=== PATIENT | male | born 1975 | race Caucasian/White ===

== ENCOUNTER 2017-11-01 15:38 | Emergency (ER) | payer OTHER ==
[~2017-11-01] VITALS: Ht 195.6 cm; Wt 84.1 kg
[2017-11-01 15:41] VITALS: Ht 195.6 cm; Wt 84.1 kg
[2017-11-01] MEDS ORDERED: CLONAZEPAM0.5 MG/TAB PO (15:46)
[2017-11-01] MEDS ORDERED: ADDERALL 20 MG20 M1 PO (15:47)
[2017-11-01] MEDS ORDERED: VIBRAMYCIN 100100 MG PO (18:44)
[2017-11-01] MEDS ORDERED: BACTRIM DS TABL1 TAB PO (18:44)
[2017-11-01 18:59] VITALS: BP 98/76
== END 2017-11-01 18:57 | disposition home or self-care (01) ==
LOC: D.ER 15:38
DX: L02.415 Cutaneous abscess of right lower limb (principal)